=== PATIENT | female | born 1990 | race Two or more races ===

== ENCOUNTER 2019-07-24 11:04 | Emergency (ER) | payer OTHER ==
[~2019-07-24] VITALS: Ht 160 cm; Wt 64.9 kg
[2019-07-24] MEDS ORDERED: FOLIC ACID0.8 M1 (11:22)
[2019-07-24] MEDS ORDERED: ATABEX DHA 200200 MG (11:23)
== END 2019-07-24 16:28 | disposition home or self-care (01) ==
LOC: ER 11:04
DX: O26.851 Spotting complicating pregnancy, first trimester (principal); O36.80X1 Pregnancy with inconclusive fetal viability, fetus 1

== ENCOUNTER → 2019-08-23 | Outpatient (CLI) | payer OTHER ==
[~2019-08-23] MED LIST: ATABEX DHA 200200 MG; FOLIC ACID0.8 M1
== END | disposition home or self-care (01) ==
LOC: PRENATAL 08:00
DX: O36.80X1 Pregnancy with inconclusive fetal viability, fetus 1 (principal)

== ENCOUNTER → 2019-10-18 | Outpatient (CLI) | payer OTHER | END | disposition home or self-care (01) | LOC: PRENATAL 08:00 | DX: O35.3XX0 Maternal care for (suspected) damage to fetus from viral disease in mother, not applicable or unspecified (principal); Z36.89 Encounter for other specified antenatal screening ==

== ENCOUNTER → 2020-01-18 | Outpatient (CLI) | payer OTHER | END | disposition home or self-care (01) | LOC: PRENATAL 10:08 | PROVIDERS: ATTEND Obstetrics & Gynecology Maternal & Fetal Medicine | DX: O26.843 Uterine size-date discrepancy, third trimester (principal); O36.8131 Decreased fetal movements, third trimester, fetus 1; Z36.89 Encounter for other specified antenatal screening ==

== ENCOUNTER 2020-02-07 14:58 | Inpatient (IN) | payer OTHER ==
[~2020-02-07] VITALS: Ht 160 cm; Wt 3.2 kg
== END 2020-02-29 13:12 | disposition home or self-care (01) | DRG 788 ==
LOC: O/R 02-26 08:29 → OB/GYN 02-26 08:29 → LDR 02-26 14:53 → OB/GYN 02-26 16:14 → LDR 03-03 14:48
PROVIDERS: ADMIT Specialist; ATTEND Specialist
PROC: 4A1HXFZ Monitoring of Products of Conception, Cardiac Rhythm, External Approach (ICD-10-PCS; 2020-02-26)
PROC: 3E033VJ Introduction of Other Hormone into Peripheral Vein, Percutaneous Approach (ICD-10-PCS; 2020-02-26)
PROC: 10D00Z1 Extraction of Products of Conception, Low, Open Approach (ICD-10-PCS; principal; 2020-02-26 14:15)
DX: O64.1XX0 Obstructed labor due to breech presentation, not applicable or unspecified (principal); Z3A.39 39 weeks gestation of pregnancy; Z37.0 Single live birth; O99.824 Streptococcus B carrier state complicating childbirth